=== PATIENT | male | born 1990 | race Caucasian/White ===

== ENCOUNTER → 2020-12-29 | Outpatient (REF) | payer OTHER | LOC: M SMT 13:30 | PROVIDERS: ATTEND Urology | DX: Z30.2 Encounter for sterilization (principal) ==

== ENCOUNTER → 2021-03-16 | Outpatient (REF) | payer OTHER ==
[2021-03-16 11:29] LABS: SEMEN APPEARANCE OPAQUE (OPAQUE); SEMEN VISCOSITY VISCOUS (LIQUID); SEMEN VOLUME 2.4 ml (2.0-5.0); WBC CONCENTRATION >1 M/ml (<=1 M/ml)
== END ==
LOC: M SMT 10:55
PROVIDERS: ATTEND Urology
DX: Z30.2 Encounter for sterilization (principal)